=== PATIENT | male | born 1950 | race Caucasian/White ===

== ENCOUNTER 2020-10-17 07:48 | Day surgery (SDC) | payer MEDICARE ==
[~2020-10-17 07:48] MED LIST: Bacitracin Oint 1 GM U/D Packet ONE; Bupivacaine 0.5% 50 ML MDV ONE; Dexamethasone 4 MG/ML SDV ONE; Glycopyrrolate 0.2 MG/ML 5 ML MDV ONE; Lidocaine 1% with EPINEPHrine 1:100,000 50 ML MDV ONE; Neostigmine Methylsulfate 1 MG/ML 5 ML Syringe ONE; Ondansetron 4 MG/2 ML SDV ONE; Propofol 200 MG/20 ML SDV ONE; Rocuronium 50 MG/5 ML Vial ONE; Succinylcholine 200 MG/10 ML MDV ONE; fentaNYL 250 MCG/5 ML SDV ONE
[2020-10-17] MEDS ORDERED: Acetaminophen 500 MG Tab PO ONE (08:30)
[2020-10-17] MEDS ORDERED: Dextrose 5%-Lactated Ringers 1,000 ML IV SCH (08:30)
[2020-10-17] MEDS ORDERED: Bupivacaine 0.5%/EPINEPHrine 1:200,000 50 ML MDV ONE (11:24)
[2020-10-17] MEDS ORDERED: ePHEDrine 50 MG/ML SDV ONE (11:49)
[2020-10-17] MEDS ORDERED: fentaNYL 250 MCG/5 ML SDV ONE (12:23)
[2020-10-17] MEDS ORDERED: Lactated Ringers 1,000 ML ONE (12:24)
--- NOTE | 2020-10-30 12:22 | OR ---
DATE OF PROCEDURE: 10/17/2020 SURGEON: Branden Hu MD PREOPERATIVE DIAGNOSIS: Status post biopsy of skin lesion of left upper back showing aggressive microcystic adnexal carcinoma. OPERATIVE PROCEDURE: Radicle resection of microcystic adnexal carcinoma, left upper back ([id number]). ANESTHESIA: General. POT FISHER: Angie Max PA-C. INDICATIONS FOR PROCEDURE: This is a 70-year-old male, recently presenting with a skin lesion in the upper back. This was initially felt to be a squamous cell carcinoma; however, final pathology showed microcystic adnexal carcinoma with involved margins at multiple locations and perineural invasion. Plan is to proceed with a wide local excision of this area. Potential risks including bleeding, infection, local or distant tumor recurrence were reviewed and the patient wishes to proceed. DETAILS OF PROCEDURE: The patient was taken to the operating room, placed in a supine position. After general endotracheal anesthesia was induced, he was converted to a prone position and the area in the left upper back was then prepped and draped. The area was then marked out and the incision plus margin length ended up being 10.5 cm. Final incision length 11.5 cm. Transversely oriented elliptical incision over the previous biopsy site was made and carried down through the skin and subcutaneous tissue down to and including the muscular fascia. The disk of tissue was then removed flush with the muscular fascia. This was then oriented with sutures for pathologic review. Frozen section took quite a bit of time and multiple sections were obtained and there did not appear to be obvious involvement of the margins. With this, then the area was anesthetized with 1% lidocaine, mixed with Marcaine for postoperative pain control and incision closed with 2 layers of 3-0 and 4-0 Vicryl stitch deep and xi for the skin. Dressing was applied. The patient was taken to the recovery room in satisfactory condition. Physician orthopedic physician assistant, Angie Max, played an essential role in assisting in this case, helping to position the patient, retract structures as needed, as well as suturing and cutting sutures when indicated. Her presence improved patient safety and decreased the operative time. Branden Hu MD /[id number]
== END 2020-10-17 15:00 | disposition home or self-care (01) ==
LOC: JP.SDS 07:48
PROVIDERS: ATTEND Surgery
DX: C49.6 Malignant neoplasm of connective and soft tissue of trunk, unspecified (principal); I10 Essential (primary) hypertension; E03.9 Hypothyroidism, unspecified
CPT/HCPCS: 21936; 36415; 80048; 85027; A9270; J0330; J0690; J1100; J2020; J2405; J2704; J2710; J3010; J3490; J7060; J7120; J7121; 88305; 88342

== ENCOUNTER 2020-10-18 13:07 | Emergency (ER) | payer MEDICARE ==
[2020-10-18] MEDS ORDERED: Lidocaine 2% Jelly 10 ML Urojet MUCMEM ONE (14:20)
--- NOTE | 2020-10-18 14:21 | EDM.PDOC ---
ED HPI GENERAL MEDICAL PROBLEM - General Chief Complaint: Genitourinary Problem Stated Complaint: URINE ISSUES/FEVER?/SWOLLEN Time Seen by Provider: 10/18/20 14:05 Source of Information: Reports: Patient, Family, RN Notes Reviewed History Limitations: Reports: No Limitations - History of Present Illness INITIAL COMMENTS - FREE TEXT/NARRATIVE: 70-year-old gentleman presents emergency department a complaint of urinary retention, he underwent general anesthesia yesterday for surgical procedure to remove the tumor on his back. He states since surgery his urination has been decreased and now he feels his bladder is quite full he does have a known history of enlarged prostate consistent with BPH Pelvic Pain Score (Numeric/FACES): 8 - Related Data Allergies Allergy/AdvReac Type Severity Reaction Status Date / Time amoxicillin [From Augmentin] Allergy Other Verified 10/18/20 13:29 clavulanic acid Allergy Other Verified 10/18/20 13:29 [From Augmentin] niacin Allergy Other Verified 10/18/20 13:29 rosuvastatin [From Crestor] Allergy Other Verified 10/18/20 13:29 Home Meds: Home Meds Aspirin [Adult Low Dose Aspirin EC] 81 mg PO DAILY 09/16/13 [History] Cholecalciferol (Vitamin D3) [Vitamin D3] 1,000 unit PO DAILY 09/16/13 [History] Ubidecarenone [Coenzyme Q10] 1 tab PO DAILY 09/16/13 [History] Betamethasone Dipropionate [Diprolene AF 0.05% Crm] 1 appful TOP BID 05/15/19 [History] Flaxseed Oil [Flaxseed] 2 - 3 tab PO TID PRN 05/15/19 [History] Fluticasone Propionate [Flonase Allergy Relief] 2 spray KAM DAILY 05/15/19 [History] Levothyroxine 50 mg PO DAILY 05/15/19 [History] Lisinopril 20 mg PO DAILY 05/15/19 [History] [place]-3 Fatty Acids/Fish Oil [Fish Oil 1,000 mg Softgel] 1,000 mg PO DAILY 05/15/19 [History] Rosuvastatin [Crestor] 2.5 mg PO DAILY 05/15/19 [History] Triamcinolone Acetonide [Triamcinolone Acetonide 0.5%] 1 appful TOP BID 05/15/19 [History] Vitamin B Complex 1 tab PO DAILY 05/15/19 [History] Betamethasone Dipropionate [Diprolene AF 0.05% Crm] 1 applic TOP BID 10/13/20 [History] Mometasone Furoate [Elocon 0.1% Crm] 1 applic TOP DAILY 10/13/20 [History] Past Medical History HEENT History: Reports: Impaired Vision, Sinusitis Other HEENT History: weasr reading glasses Cardiovascular History: Reports: Hypertension Gastrointestinal History: Reports: GERD Genitourinary History: Reports: BPH Musculoskeletal History: Reports: None Endocrine/Metabolic History: Reports: Hypothyroidism Immunologic History: Reports: Other (See Below) Other Immunologic History: guillain-barre syndrome Oncologic (Cancer) History: Reports: Other (See Below) Other Oncologic History: adenoxal carcinoma upper back Dermatologic History: Reports: None - Infectious Disease History Infectious Disease History: Reports: Chicken Pox, Measles, Mumps - Past Surgical History Head Surgeries/Procedures: Reports: None HEENT Surgical History: Reports: Tonsillectomy Cardiovascular Surgical History: Reports: None GI Surgical History: Reports: Colonoscopy, Hernia, Inguinal Endocrine Surgical History: Reports: None Musculoskeletal Surgical History: Reports: Other (See Below) Other Musculoskeletal Surgeries/Procedures:: right wrist Oncologic Surgical History: Reports: None Dermatological Surgical History: Reports: Skin Biopsy Social & Family History - Family History Cardiac: Reports: High Cholesterol, Hypertension Respiratory: Reports: COPD GI: Reports: Irritable Bowel Syndrome Oncologic: Reports: Skin - Tobacco Use Tobacco Use Status *Q: Never Tobacco User Second Hand Smoke Exposure: No - Caffeine Use Caffeine Use: Reports: Soda - Recreational Drug Use Recreational Drug Use: No ED ROS GENERAL - Review of Systems Review Of Systems: See Below Constitutional: Reports: No Symptoms : Reports: Urinary Retention ED EXAM, RENAL/ - Physical Exam Exam: See Below Exam Limited By: No Limitations General Appearance: Alert, WD/WN, No Apparent Distress Respiratory/Chest: No Respiratory Distress Rectal (Males) Exam: Normal Exam, Normal Rectal Tone, BPH, Other (Prostate is markedly enlarged). No: Prostate Normal, Tenderness Course - Vital Signs Last Recorded V/S: Last Vital Signs Temp 98.1 F 10/18/20 13:32 Pulse 74 10/18/20 13:32 Resp 18 10/18/20 13:32 BP 171/83 H 10/18/20 13:32 Pulse Ox - Orders/Labs/Meds Orders: Active Orders 24 hr Category Date Time Status Bladder Scan [RC] ASDIRECTED Care 10/18/20 14:12 Active Jay Catheter Insertion [Insert Urinary Catheter] [OM. Care 10/18/20 14:15 Ordered PC] Q24H Urinary Catheter Assessment [RC] ASDIRECTED Care 10/18/20 14:13 Active Labs: Laboratory Tests 10/18/20 Range/Units 13:49 Urine Color Yellow (YELLOW) Urine Appearance Clear (CLEAR) Urine pH 5.5 (5.0-8.0) Ur Specific [place] 1.010 (1.008-1.030) Urine Protein Negative (NEGATIVE) mg/dL Urine Glucose (UA) Negative (NEGATIVE) mg/dL Urine Ketones Negative (NEGATIVE) mg/dL Urine Occult Blood Negative (NEGATIVE) Urine Nitrite Negative (NEGATIVE) Urine Bilirubin Negative (NEGATIVE) Urine Urobilinogen 0.2 (0.2-1.0) EU/dL Ur Leukocyte Esterase Negative (NEGATIVE) Urine RBC 0-5 (0-5) Urine WBC 0-5 (0-5) Ur Epithelial Cells Rare Amorphous Sediment Not seen Urine Bacteria Not seen Urine Mucus Not seen Meds: Medications Discontinued Medications Generic Name Dose Route Start Last Admin Trade Name Freq PRN Reason Stop Dose Admin Lidocaine HCl 10 ml 10/18/20 14:20 10/18/20 14:38 Xylocaine 2% Jelly MUCMEM 10/18/20 14:21 10 ml ONETIME ONE Administration Departure - Departure Time of Disposition: 15:48 Disposition: Home, Self-Care 01 Condition: Fair Clinical Impression: Retention of urine - Discharge Information Instructions: Indwelling Urinary Catheter Care, Adult, Acute Urinary Retention, Male, [id number] Referrals: Nithin Junior MD [Primary Care Provider] - Forms: ED Department Discharge Additional Instructions: Follow-up with your primary care in a couple of days, for removal of the urinary catheter, you may need a consultation with urology in the future, call return to the emergency department worsening of symptoms Sepsis Event Note (ED) - Evaluation Sepsis Screening Result: No Definite Risk - Focused Exam Vital Signs: Vital Signs Temp Pulse Resp BP 10/18/20 13:32 98.1 F 74 18 171/83 H - My Orders Last 24 Hours: My Active Orders 10/18/20 14:12 Bladder Scan [RC] ASDIRECTED 10/18/20 14:13 Urinary Catheter Assessment [RC] ASDIRECTED 10/18/20 14:15 Jay Catheter Insertion [Insert Urinary Catheter] [OM.PC] Q24H - Assessment/Plan Last 24 Hours: My Active Orders 10/18/20 14:12 Bladder Scan [RC] ASDIRECTED 10/18/20 14:13 Urinary Catheter Assessment [RC] ASDIRECTED 10/18/20 14:15 Jay Catheter Insertion [Insert Urinary Catheter] [OM.PC] Q24H Plan: Assessment Acuity = acute Site and laterality = urinary retention Etiology = combination BPH and recent surgery with general anesthesia Manifestations = none Location of injury = Home Lab values = urinalysis unremarkable Plan Good relief with catheterization over 1100 cc of urine removed leg bag was placed he is can follow-up with his primary care in couple days remove this if he still having problems he will follow-up with urology This note was dictated using [employer] voice recognition software please call with any questions on syntax or grammar.
== END 2020-10-18 15:56 | disposition home or self-care (01) ==
LOC: JP.ED 13:07
DX: N40.1 Benign prostatic hyperplasia with lower urinary tract symptoms (principal); R33.8 Other retention of urine; I10 Essential (primary) hypertension; E03.9 Hypothyroidism, unspecified; Z88.0 Allergy status to penicillin; Z88.1 Allergy status to other antibiotic agents; Z88.8 Allergy status to other drugs, medicaments and biological substances; Z79.82 Long term (current) use of aspirin; Z79.899 Other long term (current) drug therapy
CPT/HCPCS: 51702; 51798; 81001; 99283

== ENCOUNTER 2022-08-09 07:50 | Day surgery (SDC) | payer MEDICARE ==
[2022-08-09] MEDS ORDERED: fentaNYL 100 MCG/2 ML SDV ONE (09:48)
[2022-08-09] MEDS ORDERED: Propofol 200 MG/20 ML SDV ONE (09:48)
[2022-08-09] MEDS ORDERED: Sodium Chloride 0.9% 1,000 ML IV SCH (11:00)
== END 2022-08-09 11:12 | disposition home or self-care (01) ==
LOC: JP.SDS 07:50
PROVIDERS: ATTEND Surgery
DX: Z12.11 Encounter for screening for malignant neoplasm of colon (principal); K57.30 Diverticulosis of large intestine without perforation or abscess without bleeding; I10 Essential (primary) hypertension; N40.0 Benign prostatic hyperplasia without lower urinary tract symptoms
CPT/HCPCS: G0121; J2704; J3010; J7030

== ENCOUNTER 2023-03-12 15:48 | Emergency (ER) | payer MEDICARE ==
[2023-03-12] MEDS ORDERED: Ondansetron 4 MG/2 ML SDV IVPUSH ONE (16:59)
[2023-03-12] MEDS ORDERED: Sodium Chloride 0.9% 1,000 ML IV SCH (17:00)
[2023-03-12 17:11] LABS: HEMATOCRIT 40.3 % (38.4-49.7); HEMOGLOBIN 14.1 g/dL (12.9-16.9); MEAN CORPUSCULAR HEMOGLOBIN 29.9 pg (31.6-35.5); MEAN CORPUSCULAR VOLUME 85.4 fL (81.4-99.0); RED BLOOD CELL COUNT 4.72 M/uL (4.14-5.76); WHITE BLOOD CELL COUNT,WBC 10.4 K/uL (3.2-11.0)
[2023-03-12 17:12] LABS: AMORPHOUS SEDIMENT,URINE NOT SEEN; APPEARANCE,URINE CLEAR (CLEAR); BACTERIA,URINE RARE; BILIRUBIN,URINE NEGATIVE (NEGATIVE); COLOR,URINE YELLOW (YELLOW); EPITHELIAL CELLS,URINE RARE; GLUCOSE,URINE NEGATIVE (NEGATIVE); KETONES,URINE NEGATIVE (NEGATIVE); LEUKOCYTE ESTERASE,URINE NEGATIVE (NEGATIVE); MUCUS,URINE RARE; NITRITE,URINE NEGATIVE (NEGATIVE); OCCULT BLOOD,URINE NEGATIVE (NEGATIVE); PH,URINE 5.5 (5.0-8.0); PROTEIN,URINE NEGATIVE (NEGATIVE); RBC,URINE 0-5 (0-5); UROBILINOGEN,URINE 0.2 EU/dL (0.2-1.0); WBC,URINE 0-5 (0-5)
[2023-03-12 17:33] LABS: A/G RATIO 0.9 (1.2-2.2); ALANINE AMINOTRANSFERASE,ALT 23 U/L (12-78); ALBUMIN 3.4 g/dL (3.4-5.0); ALKALINE PHOSPHATASE 94 U/L (46-116); ANION GAP 8.8 mmol/L (5.0-14.0); ASPARTATE AMNIOTRANSFERASE,AST 20 U/L (15-37); BILIRUBIN TOTAL 0.7 mg/dL (0.2-1.0); BLOOD UREA NITROGEN,BUN 15 mg/dL (7-18); CARBON DIOXIDE,CO2 31 mmol/L (21-32); CHLORIDE,CL 103 mmol/L (100-108); CREATININE 0.9 mg/dL (0.8-1.3); ESTIMATED GFR 91 mL/min (>60); GLUCOSE RANDOM 99 mg/dL (74-106); POTASSIUM,K 4.8 mmol/L (3.6-5.2); PROTEIN TOTAL,TP 7.1 g/dL (6.4-8.2); SODIUM,NA 138 mmol/L (140-148)
== END 2023-03-12 19:40 | disposition home or self-care (01) ==
LOC: JP.ED 15:48
DX: E86.0 Dehydration (principal); I10 Essential (primary) hypertension; K21.9 Gastro-esophageal reflux disease without esophagitis; E03.9 Hypothyroidism, unspecified; Z88.0 Allergy status to penicillin; Z88.8 Allergy status to other drugs, medicaments and biological substances; Z79.82 Long term (current) use of aspirin; Z79.899 Other long term (current) drug therapy
CPT/HCPCS: 36415; 80053; 81001; 83605; 84145; 84484; 85027; 93005; 96361; 96374; 99284; J2405; J7030

== ENCOUNTER 2023-07-30 21:44 | Emergency (ER) | payer MEDICARE ==
[2023-07-30 22:44] LABS: BASOPHILS ABSOLUTE AUTO 0.05 K/uL (0.00-0.10); BASOPHILS PERCENT AUTO 0.5 % (0.1-1.3); EOSINOPHILS ABSOLUTE AUTO 0.36 K/uL (0.00-0.40); EOSINOPHILS PERCENT AUTO 3.9 % (0.0-5.4); HEMATOCRIT 39.1 % (38.4-49.7); HEMOGLOBIN 13.8 g/dL (12.9-16.9); IMMATURE GRAN PERCENT AUTO 0.2 % (0.0-0.7); LYMPHOCYTES ABSOLUTE AUTO 2.24 K/uL (0.8-3.3); LYMPHOCYTES PERCENT AUTO 24.5 % (11.4-47.7); MEAN CORPUSCULAR HEMOGLOBIN 30.2 pg (31.6-35.5); MEAN CORPUSCULAR HGB CONC 35.3 g/dL (31.6-35.5); MEAN CORPUSCULAR VOLUME 85.6 fL (81.4-99.0); MONOCYTES ABSOLUTE AUTO 0.87 K/uL (0.20-0.90); MONOCYTES PERCENT AUTO 9.5 % (3.3-12.6); NEUTROPHILS ABSOLUTE AUTO 5.62 K/uL (1.0-7.6); NEUTROPHILS PERCENT AUTO 61.4 % (40.0-78.1); PLATELET COUNT,PLT 213 K/uL (130-375); RED BLOOD CELL COUNT 4.57 M/uL (4.14-5.76); WHITE BLOOD CELL COUNT,WBC 9.2 K/uL (3.2-11.0)
[2023-07-30 22:45] LABS: IMMATURE GRAN ABSOLUTE AUTO 0.02 K/uL (0.00-0.23)
[2023-07-30 23:07] LABS: ANION GAP 5.2 mmol/L (5.0-14.0); CALCIUM 8.9 mg/dL (8.5-10.1); CREATININE 1.1 mg/dL (0.8-1.3); EST CRCL DRUG DOSING (CG) 62.31 mL/min; POTASSIUM,K 4.3 mmol/L (3.6-5.2); TROPONIN I HIGH SENSITIVITY 8.3 pg/mL (<=60.3)
== END 2023-07-31 00:11 | disposition home or self-care (01) ==
LOC: JP.ED 21:44
DX: I49.3 Ventricular premature depolarization (principal); I10 Essential (primary) hypertension; K21.9 Gastro-esophageal reflux disease without esophagitis; E03.9 Hypothyroidism, unspecified; Z86.16 Personal history of COVID-19; Z88.0 Allergy status to penicillin; Z88.1 Allergy status to other antibiotic agents; Z79.82 Long term (current) use of aspirin; Z79.899 Other long term (current) drug therapy
CPT/HCPCS: 36415; 80048; 83735; 84484; 85025; 93005; 99285

== ENCOUNTER 2023-10-06 00:56 | Emergency (ER) | payer MEDICARE | END 2023-10-06 03:52 | disposition home or self-care (01) | LOC: JP.ED 00:56 | DX: J32.9 Chronic sinusitis, unspecified (principal); K21.9 Gastro-esophageal reflux disease without esophagitis; I10 Essential (primary) hypertension; E03.9 Hypothyroidism, unspecified; Z88.0 Allergy status to penicillin; Z88.8 Allergy status to other drugs, medicaments and biological substances; Z79.82 Long term (current) use of aspirin; Z79.899 Other long term (current) drug therapy; Z86.16 Personal history of COVID-19 | CPT/HCPCS: 99283 ==